=== PATIENT | male | born 1975 | race Caucasian/White ===

== ENCOUNTER 2017-08-28 05:47 | Emergency (ER) | payer OTHER ==
[2017-08-28 05:51] VITALS: BP 138/79
[2017-08-28] MEDS ORDERED: IBUPROFEN 600 MG TAB PO ONE (05:53)
--- NOTE | 2017-08-28 06:04 | EDPHY ---
H & P Stated Complaint: R foot pain after "jumping into bed" this AM 0430. Time Seen by Provider: 08/28/17 05:56 HPI/ROS: HPI The patient presents with right foot pain which began at about 4 3 this morning. He was jumping into bed and as he did this he heard a popping noise and had immediate onset of dull pain in his lower right foot on the plantar surface. The pain is been constant ever since and is moderate in severity. It is worse when he flexes his toes walks on his foot. He has no prior history of similar injury. REVIEW OF SYSTEMS Constitutional: No fever, no chills. Musculoskeletal: No back pain. Skin: No rashes. Neurological: No headache. PMHx: Healthy, smoker Soc Hx: Lives at home with his PHYSICAL General Appearance: Alert, no distress Eyes: Pupils equal and round no pallor or injection ENT, Mouth: Mucous membranes moist Respiratory: Breathing comfortably Neurological: A&O, moves all extremities Skin: Warm and dry, no rashes Musculoskeletal: Neck is supple non tender Extremities: Right foot is non edematous, non erythematous; the plantar surface is tender at the midline from the base of the heel to the metatarsals, there is limited toe flexion secondary to pain, capillary refill is brisk with sensation intact to light touch, there is 2+ DP pulses, Achilles tendon is intact Psychiatric: Patient is oriented X 3, there is no agitation Source: Patient Exam Limitations: No limitations - Personal History Current Tetanus/Diphtheria Vaccine: No Current Tetanus Diphtheria and Acellular Pertussis (TDAP): No - Medical/Surgical History Hx Asthma: No Hx Chronic Respiratory Disease: No Hx Diabetes: No Hx Cardiac Disease: No Hx Renal Disease: No Hx Cirrhosis: No Hx Alcoholism: No Hx HIV/AIDS: No Hx Splenectomy or Spleen Trauma: No Other PMH: Denies - Social History Smoking Status: Current every day smoker Constitutional: Initial Vital Signs Temperature (C) 36.5 C 08/28/17 05:48 Heart Rate 70 08/28/17 05:48 Respiratory Rate 16 08/28/17 05:48 Blood Pressure 138/79 H 08/28/17 05:48 O2 Sat (%) 98 08/28/17 05:48 O2 Delivery Mode Room Air Allergies/Adverse Reactions: No Known Allergies Allergy (Verified 08/28/17 05:48) Home Medications: Medication Instructions Recorded NK [No Known Home Meds] 08/28/17 Medical Decision Making - Diagnostics Imaging Results: X-rays right foot three view shows soft tissue swelling in the plantar aspect with no fracture, no dislocation, interpreted by me, radiology interpretation is pending. Imaging: I viewed and interpreted images myself Differential Diagnosis: This is a 42-year-old man with right foot pain after jumping into bed. On exam , he is neurovascularly intact, he does have tenderness to the plantar surface of his foot. Differential diagnosis includes foot sprain, foot fracture, less likely dislocation. In the emergency department, patient was given ibuprofen for his pain. X-ray was obtained and was unremarkable. I suspect he has a foot sprain. We have given him an Zachary wrap. - Data Points Medications Given: Discontinued Medications Ibuprofen (Motrin) 600 mg PO EDNOW ONE Stop: 08/28/17 05:54 Last Admin: 08/28/17 06:00 Dose: 600 mg Departure - Departure Disposition: Home, Routine, Self-Care Clinical Impression: Foot sprain Qualifiers: Encounter type: initial encounter Laterality: right Qualified Code(s): S93.601A - Unspecified sprain of right foot, initial encounter Condition: Good Instructions: Foot Sprain (ED), R.I.C.E. Treatment (ED) Additional Instructions: I recommend you elevates your foot, use ice for 20 min at a time several times a day, use the crutches as needed for walking. If your pain continues for the next few days, I do recommend that you follow up with a precision honer. I have listed the name of him below. Referrals: Chaka Perez MD [Doctor of Podiatric Medicine] - As per Instructions Stand Alone Forms: Work Excuse
== END 2017-08-28 06:35 | disposition home or self-care (01) ==
LOC: CED 05:47 → MERGE 05:47 → CED 06:35
DX: S93.601A Unspecified sprain of right foot, initial encounter (principal); X58.XXXA Exposure to other specified factors, initial encounter; F17.200 Nicotine dependence, unspecified, uncomplicated
CPT/HCPCS: 73630-PO; L4386